=== PATIENT | female | born 1965 ===

== ENCOUNTER 2017-01-20 20:04 | Emergency (ER) | payer BC ==
[2017-01-20 22:04] LABS: ABSOLUTE NEUTROPHIL COUNT 1.8 K/mm3 (1.8-7.7); BASO % 0.3 % (0.2-1.0); EOS # 0.1 (0.0-0.5); EOS % 2.2 % (0.9-2.9); HEMOGLOBIN 14.7 gm/l (12.0-16.0); IMM NEUT% 0.2 % (0-1); LYMPH # 3.3 (1.0-4.8); MEAN CELL VOLUME 93.6 fl (81.0-99.0); MEAN CORPUSCULAR HEMOGLOBIN 31.3 pg (27.0-31.0); MEAN CORPUSCULAR HGB CONC 33.4 g/dl (33.0-37.0); MEAN PLATELET VOLUME 9.6 fl (7.4-10.4); MONO # 0.6 (0.0-0.8); MONO % 9.4 % (4-12); NEUT % 30.9 % (43-75); PLATELET COUNT 217 K/mm3 (130-400); RED CELL DISTRIBUTION WIDTH 11.9 % (11.5-14.5)
[2017-01-20 22:14] LABS: ALBUMIN 4.3 gm/dL (3.5-5.7); CALCIUM 9.8 mg/dL (8.6-10.3)
--- NOTE | 2017-01-21 08:28 | RAD ---
EXAMINATION:CHEST - 2 VIEWS CLINICAL INDICATION: Chest palpitations. COMPARISON:none FINDINGS: The cardiomediastinal silhouette is within normal limits. There is no adenopathy identified. There is no pleural effusion. The lungs are clear. The osseous structures are unremarkable for age. IMPRESSION: Negative PA and lateral views of the chest. No acute cardiopulmonary process is identified.
== END 2017-01-21 00:17 | disposition home or self-care (01) ==
LOC: ED 20:04
DX: R00.2 Palpitations (principal)